=== PATIENT | female | born 1970 | race American Indian/Alaskan Native ===

== ENCOUNTER 2020-03-28 18:33 | Emergency (ER) | payer OTHER ==
[2020-03-28] MEDS ORDERED: Diphtheria,Pertussis(Acell),Tetanus Vaccine 0.5 ML SDV IM ONE (19:58)
--- NOTE | 2020-03-28 19:59 | EDM.PDOC ---
ED HPI GENERAL MEDICAL PROBLEM - General Chief Complaint: Laceration Stated Complaint: CUT ON RT CALF Time Seen by Provider: 03/28/20 19:53 Source of Information: Reports: Patient History Limitations: Reports: No Limitations - History of Present Illness INITIAL COMMENTS - FREE TEXT/NARRATIVE: Patient presents for evaluation of a laceration sustained to the left calf muscle after accidentally brushing up against the stub of a low tree branch approximately 1800 hrs. tonight. There was some minor discomfort and bleeding from it. The wound was gapping open and she felt that she needed to be evaluated and probably get stitches. I agree. Her last tetanus was 2011. Onset: Today Duration: Hour(s): (2) Location: Reports: Lower Extremity, Left Quality: Reports: Dull Severity: Mild Context: Reports: Trauma Associated Symptoms: Reports: No Other Symptoms - Related Data Allergies Allergy/AdvReac Type Severity Reaction Status Date / Time erythromycin base Allergy Rash Verified 03/28/20 19:04 Home Meds: Home Meds Naproxen [Naprosyn] 500 mg PO BID 03/28/20 [History] Omeprazole 20 mg PO DAILY 03/28/20 [History] atorvaSTATin [Lipitor] 10 mg PO DAILY 03/28/20 [History] lisinopriL [Lisinopril] 20 mg PO DAILY 03/28/20 [History] Past Medical History Cardiovascular History: Reports: High Cholesterol, Hypertension Respiratory History: Reports: COPD Gastrointestinal History: Reports: G[employer] History: Reports: Musculoskeletal History: Reports: RA - Past Surgical History Other HEENT Surgeries/Procedures: tenitis Female Surgical History: Reports: Hysterectomy Social & Family History - Tobacco Use Smoking Status *Q: Current Every Day Smoker Years of Tobacco use: 20 Packs/Tins Daily: 0.2 - Caffeine Use Caffeine Use: Reports: Coffee, Soda - Recreational Drug Use Recreational Drug Use: No ED ROS GENERAL - Review of Systems Review Of Systems: Comprehensive ROS is negative, except as noted in HPI. ED EXAM, SKIN/RASH Exam: See Below Text/Narrative:: This is an adult female sitting on the cart in room 8 there is no bleeding from the laceration area. Exam Limited By: No Limitations General Appearance: Alert, No Apparent Distress Cardiovascular: Regular Rate, Rhythm Extremities: Other (There is a curvilinear 7 cm partial superficial avulsion flap injury to the proximal posterior left leg.) Neurological: Alert ED SKIN PROCEDURES - Laceration/Wound Repair Left Lower Posterior Proximal Leg Appearance: Subcutaneous, Clean Distal NVT: Neuro & Vascular Intact Anesthetic Type: Local Local Anesthesia - Lidocaine (Xylocaine): 1% with EPI Local Anesthetic Volume: Other (7cc) Skin Prep: Chlorhexidine (Hibiciens) Saline Irrigation (cc's): 100 Exploration/Debridement/Repair: Wound Explored, No Foreign Material Found Closed with: Sutures Lac/Wound length In cm: 7 Suture Size: 3-0 # of Sutures: 7 Suture Type: Nylon, Interrupted Drain Placement: No Sterile Dressing Applied: Nurse Tetanus Status Addressed: Yes Complications: No Course - Vital Signs Last Recorded V/S: Last Vital Signs Temp 36 C L 03/28/20 19:07 Pulse 94 03/28/20 19:07 Resp 16 03/28/20 19:07 BP 184/153 H 03/28/20 19:07 Pulse Ox 99 03/28/20 19:07 - Orders/Labs/Meds Orders: Active Orders 24 hr Category Date Time Status Vaccines to be Administered [RC] PER UNIT ROUTINE Care 03/28/20 19:58 Active Meds: Medications Discontinued Medications Generic Name Dose Route Start Last Admin Trade Name Froyq PRN Reason Stop Dose Admin Bacitracin 1 dose 03/28/20 21:05 03/28/20 21:12 Bacitracin Oint 1 Gm TOP 03/28/20 21:06 1 dose ONETIME ONE Administration Diphtheria/Tetanus/Acell Pertussis 0.5 ml 03/28/20 19:58 03/28/20 20:06 Adacel IM 03/28/20 19:59 0.5 ml .ONCE ONE Administration Lidocaine/Epinephrine 6 ml 03/28/20 20:00 03/28/20 20:07 Xylocaine 1% With Epinephrine 1:100,000 INFILT 6 ml ASDIRECTED GUSTAVO Administration - Re-Assessments/Exams Free Text/Narrative Re-Assessment/Exam: 03/28/20 23:17 I reviewed options for her wound but I feel that sutures will help things heal the best as opposed to Steri-Strips or other topical products. She was given a dose of Adacel as it had been a little over 8 years since her last tetanus booster. See procedure note for full procedure details. Given the nature of her injury, and [facility] prescription for Augmentin 875/125 mg, 20 tablets, was entered. She should take the tablets only for 5 days however and then discharge the remaining unless the wound begins to show signs of infection. Infection signs and symptoms were reviewed and she was instructed to return here if it becomes a problem. Otherwise ice packing the injured area, Advil or Aleve is reasonable. Sutures can be removed in 10 to 14 days. 03/28/20 23:19 Departure - Departure Time of Disposition: 21:06 Disposition: Home, Self-Care 01 Clinical Impression: Laceration of leg not thigh, left Qualifiers: Encounter type: initial encounter Qualified Code(s): S81.812A - Laceration without foreign body, left lower leg, initial encounter - Discharge Information Instructions: Laceration Care, Adult, Sutures, [place], or Adhesive Wound Closure, [id number] Referrals: PCP,None [Primary Care Provider] - Forms: ED Department Discharge Additional Instructions: Keep first dressing on and dry for 3 days. You were given a booster of tetanus, diphtheria, pertussis. Start antibiotic tonight and take for 5 days, you may have tablets left over after 5 days that you could throw away. After 3 days, you can wash the laceration area with plain water and mild soap daily. It does not need rubbing alcohol, peroxide, iodine. Watch for signs of infection such as swelling, redness, pus discharge. The stitches, 7 of them, should be removed in 10 to 14 days. If feeling worse in any way, return to ER. Sepsis Event Note (ED) - Evaluation Sepsis Screening Result: No Definite Risk - Focused Exam Vital Signs: Vital Signs Temp Pulse Resp BP Pulse Ox 03/28/20 19:07 36 C L 94 16 184/153 H 99 03/28/20 19:06 36 C L 94 16 184/153 H 99 - My Orders Last 24 Hours: My Active Orders 03/28/20 19:58 Vaccines to be Administered [RC] PER UNIT ROUTINE - Assessment/Plan Last 24 Hours: My Active Orders 03/28/20 19:58 Vaccines to be Administered [RC] PER UNIT ROUTINE
[2020-03-28] MEDS ORDERED: Lidocaine 1% with EPINEPHrine 1:100,000 50 ML MDV INFILT SCH (20:00)
[2020-03-28] MEDS ORDERED: Bacitracin Oint 1 GM U/D Packet TOP ONE (21:05)
== END 2020-03-28 21:17 | disposition home or self-care (01) ==
LOC: JP.ED 18:33
DX: S81.812A Laceration without foreign body, left lower leg, initial encounter (principal); E78.00 Pure hypercholesterolemia, unspecified; I10 Essential (primary) hypertension; J44.9 Chronic obstructive pulmonary disease, unspecified; K21.9 Gastro-esophageal reflux disease without esophagitis; F17.210 Nicotine dependence, cigarettes, uncomplicated; Z88.1 Allergy status to other antibiotic agents; Z23 Encounter for immunization; W22.8XXA Striking against or struck by other objects, initial encounter
CPT/HCPCS: 12002; 90471; 90715; 99282